=== PATIENT | female | born 1960 | race Caucasian/White ===

== ENCOUNTER 2016-11-26 16:41 | Emergency (ER) | payer MEDICAID, MEDICARE ==
[~2016-11-26] VITALS: Ht 167.6 cm; Wt 52.7 kg
[~2016-11-26 16:41] MED LIST: HALOPERIDOL 5 MG INJ ONE; LORAZEPAM 2 MG INJ ONE
[2016-11-26 16:47] VITALS: Ht 167.6 cm; Wt 52.7 kg
--- NOTE | 2016-11-26 16:58 | ERD ---
ER Documentation Chief Complaint Date/Time DATE: 11/26/16 TIME: 16:55 Chief Complaint aggitation HPI 56-year-old female brought in via EMS for agitation and potential alcohol intoxication. The patient was found in public her breasts. The patient arrives and is verbally aggressive and threatening upon arrival. She continues to expose herself in the emergency department despite verbal redirection. The patient does admit to drinking alcohol tonight. She denies any drug abuse. She denies any suicidal or homicidal ideation. Remainder of HPI is very limited. ROS All systems reviewed and are negative except as per history of present illness. Medications Home Meds Unable to Obtain Active Prescriptions or Reported Meds PMhx/Soc Hx Miscellaneous Medical Probl: Yes (bipolar) FmHx Family History: No diabetes Physical Exam Vitals Vital Signs Date Time Temp Pulse Resp B/P Pulse Ox O2 Delivery O2 Flow Rate FiO2 11/26/16 18:00 97.5 92 18 135/90 97 11/26/16 17:45 97.5 90 18 134/89 97 11/26/16 17:30 97.5 92 18 142/78 97 11/26/16 17:15 97.5 90 18 132/88 97 11/26/16 16:50 97.5 92 18 134/75 97 11/26/16 16:47 98.1 111 16 129/67 99 Physical Exam General: Disheveled, thin female verbally aggressive, exposing self Head: Normocephalic, atraumatic. Eyes: Pupils equally reactive, EOM intact ENT: Moist mucous membranes Neck: Supple, no lymphadenopathy Respiratory: Lungs clear bilaterally, no distress Cardiovascular: RRR, no murmurs, rubs, or gallops Abdominal: Soft, non-tender, non-distended, no peritoneal signs : Deferred MSK: No edema, no unilateral swelling, 5/5 strength Neurologic: Limited exam, smells of alcohol, moving all extremities Skin: No rash Psych: Agitated, limiting exam Result Diagram: 11/26/16 1649 11/26/16 1649 Results 24 hrs Laboratory Tests Test 11/26/16 16:49 White Blood Count 8.210^3/ul Red Blood Count 3.8310^6/ul Hemoglobin 12.2g/dl Hematocrit 35.7% Mean Corpuscular Volume 93.2fl Mean Corpuscular Hemoglobin 31.9pg Mean Corpuscular Hemoglobin Concent 34.2g/dl Red Cell Distribution Width 11.6% Platelet Count 56311^3/UL Mean Platelet Volume 9.1fl Neutrophils % 68.9% Lymphocytes % 20.4% Monocytes % 7.7% Eosinophils % 2.2% Basophils % 0.7% Nucleated Red Blood Cells % 0.0/100WBC Neutrophils # 5.710^3/ul Lymphocytes # 1.710^3/ul Monocytes # 0.610^3/ul Eosinophils # 0.210^3/ul Basophils # 0.110^3/ul Nucleated Red Blood Cells # 0.010^3/ul Sodium Level 132mmol/L Potassium Level 4.0mmol/L Chloride Level 102mmol/L Carbon Dioxide Level 21mmol/L Anion Gap 13 Blood Urea Nitrogen 16mg/dl Creatinine 0.68mg/dl Glucose Level 95mg/dl Calcium Level 9.2mg/dl Total Bilirubin 0.0mg/dl Direct Bilirubin 0.00mg/dl Indirect Bilirubin 0.0mg/dl Aspartate Amino Transf (AST/SGOT) 82IU/L Alanine Aminotransferase (ALT/SGPT) 59IU/L Alkaline Phosphatase 100IU/L Total Protein 7.1g/dl Albumin 3.7g/dl Globulin 3.40g/dl Albumin/Globulin Ratio 1.08 Ethyl Alcohol Level 130.0mg/dl Current Medications Medications (Trade) Dose Ordered Sig/Allison Route PRN Reason Start Time Stop Time Status Last Admin Dose Admin Haloperidol (Haldol) 5 mg ONCE ONCE IM 11/26/16 17:00 11/26/16 17:01 DC 11/26/16 16:50 Lorazepam (Ativan) 1 mg ONCE ONCE IM 11/26/16 17:00 11/26/16 17:01 DC 11/26/16 16:49 Procedures/MDM PROCEDURES: Restrains: Indication: Agitation, threatening of harm to self and others Location: 4 point restraints to bilateral upper and lower extremities The patient was given verbal warnings that if the behavior continued the patient would require physical and/or chemical restraints. Despite verbal warnings the behavior continued and restraints were applied. The patient had a bedside reevaluation within 50 minutes of placement of restraints. Patient remained stable. LAB INTERPRETATION: Alcohol level only mildly elevated MEDICAL DECISION MAKING: The patient's presentation is consistent with acute alcohol intoxication, possible underlying psychiatric illness. The patient is aggressive requiring physical and chemical restraints. I have a much lower clinical concern for clinically significant traumatic brain injury, meningitis, significant electrolyte disturbance The patient's workup will include appropriate laboratory testing and diagnostic imaging, as well as observation for sobriety. The patient's presentation is most consistent with acute alcohol intoxication leading to acute encephalopathy. The patient is protecting their airway. The patient has no signs or symptoms concerning for impending respiratory failure and does not require intubation at this time. The patient will require observation in the emergency room to allow for metabolization. Once the patient is able to ambulate on their own accord, navigate the community the patient can be safely discharged from the emergency room. ER COURSE: The patient was given 5 mg of Haldol, 1 mg of Ativan. Restraints applied. Alcohol level only mildly elevated suggesting possible polysubstance abuse versus underlying psychiatric illness. For this reason a broader psychiatric workup was initiated. The patient still did not require CT imaging of the brain. The patient will be observed, reevaluated for possible acute psychosis. I kept the patient and/or family informed of laboratory and diagnostic imaging results throughout the emergency room course. DISPOSITION PLAN: Pending reevaluation for acute psychosis. If negative anticipate discharge home. Patient endorsed oncoming provider for reevaluation Departure Diagnosis: Primary Impression: Polysubstance abuse Additional Impression: Agitation Condition: Stable SIRENA BLACKWELL MD Nov 26, 2016 16:58
[2016-11-26] MEDS ORDERED: LORAZEPAM 2 MG INJ IM ONE (17:00)
[2016-11-26] MEDS ORDERED: HALOPERIDOL 5 MG INJ IM ONE (17:00)
[2016-11-26 18:42] LABS: ADD SCAN DIFF NO
[2016-11-26 18:43] LABS: BASOPHIL # 0.1 10^3/ul (0.0-0.1); BASOPHILS % 0.7 % (0.0-2.0); EOSINOPHILS # 0.2 10^3/ul (0.0-0.5); EOSINOPHILS % 2.2 % (0.0-7.0); HEMATOCRIT 35.7 % (37.0-47.0); HEMOGLOBIN 12.2 g/dl (12.0-16.0); LYMPHOCYTES # 1.7 10^3/ul (0.8-2.9); LYMPHOCYTES % 20.4 % (15.0-51.0); MEAN CORPUSCULAR HEMOGLOBIN 31.9 pg (29.0-33.0); MEAN CORPUSCULAR HGB CONC 34.2 g/dl (32.0-37.0); MEAN CORPUSCULAR VOLUME 93.2 fl (82.0-101.0); MEAN PLATELET VOLUME 9.1 fl (7.4-10.4); MONOCYTE # 0.6 10^3/ul (0.3-0.9); MONOCYTES % 7.7 % (0.0-11.0); NEUTROPHIL # 5.7 10^3/ul (1.6-7.5); NEUTROPHILS % 68.9 % (39.0-77.0); PLATELET COUNT 413 10^3/UL (140-415); RED BLOOD COUNT 3.83 10^6/ul (4.20-5.40); RED CELL DISTRIBUTION WIDTH 11.6 % (11.5-14.5); WHITE BLOOD COUNT 8.2 10^3/ul (4.8-10.8)
[2016-11-26 18:48] LABS: ALBUMIN 3.7 g/dl (3.3-4.9)
[2016-11-26 18:50] LABS: ALBUMIN/GLOBULIN RATIO 1.08; CREATININE 0.68 mg/dl (0.44-1.00); TOTAL PROTEIN 7.1 g/dl (6.1-8.1)
[2016-11-26 18:51] LABS: CALCIUM 9.2 mg/dl (8.4-10.2)
[2016-11-26 21:14] VITALS: BP 136/92; PULSE 100; RESP 14
== END 2016-11-27 00:53 | disposition home or self-care (01) ==
LOC: E/R 16:41
DX: F10.120 Alcohol abuse with intoxication, uncomplicated (principal)
CPT/HCPCS: 80053; 80306; 85025; 96374; 96375; 99284; J1630; J2060

== ENCOUNTER → 2017-12-22 | Emergency (ER) | END | disposition home or self-care (01) ==

== ENCOUNTER 2018-10-23 11:45 | Emergency (ER) | payer MEDICARE, MEDICAID ==
[~2018-10-23] VITALS: Ht 170.2 cm; Wt 63.6 kg
[2018-10-23 11:48] VITALS: Ht 170.2 cm; Wt 63.6 kg
--- NOTE | 2018-10-23 12:21 | ERD ---
ER Documentation Chief Complaint Chief Complaint etoh, fell from w/c, no LOC HPI The patient is a 58-year-old female, presenting to the ER because she fell off the wheelchair in front of a store, she had a strong smell of alcohol. She denies syncope, near syncope, neck pain, chest pain, dyspnea, abdominal pain, vomiting, dysuria. She smokes and drinks, uses w/c Past medical history: Bipolar ROS All systems reviewed and are negative except as per history of present illness. Medications Home Meds No Active Prescriptions or Reported Meds Allergies Allergies: Coded Allergies: Penicillins (Verified Allergy, Unknown, RASH, 10/23/18) PMhx/Soc History of Surgery: No Anesthesia Reaction: No Hx Neurological Disorder: No Hx Respiratory Disorders: No Hx Cardiac Disorders: No Hx Psychiatric Problems: Yes (BIPOLAR ) Hx Miscellaneous Medical Probl: Yes (ETOH ABUSE ) Hx Alcohol Use: Yes Hx Substance Use: Yes Hx Tobacco Use: Yes Smoking Status: Current every day smoker Physical Exam Vitals Vital Signs Date Temp Pulse Resp B/P (MAP) Pulse Ox O2 O2 Flow FiO2 Time Delivery Rate 10/23/18 92 22 147/86 100 Room Air 14:00 (106) 10/23/18 75 18 123/92 100 Room Air 12:05 (102) 10/23/18 98.0 87 16 121/73 100 11:48 (89) Physical Exam Const: No acute distress. Head: Atraumatic. Eyes: Normal Conjunctiva. ENT: Normal External Ears, Nose and Mouth. Nasal contusion, no nasal hematoma Neck: Full range of motion. No meningismus. Resp: Clear to auscultation bilaterally. Cardio: Regular rate and rhythm. Abd: Soft, non distended, normal bowel sounds, non tender. Skin: No petechiae or rashes. Back: No midline or flank tenderness. Ext: No cyanosis, or edema. Neur: Awake. No focal deficit. Limited exam Psych: Intoxicated Result Diagram: 10/23/18 1221 10/23/18 1221 Results 24 hrs Laboratory Tests Test 10/23/18 12:21 10/23/18 12:50 10/23/18 15:25 White Blood Count 7.7 10^3/ul Red Blood Count 4.58 10^6/ul Hemoglobin 14.1 g/dl Hematocrit 43.8 % Mean Corpuscular Volume 95.6 fl Mean Corpuscular Hemoglobin 30.8 pg Mean Corpuscular 32.2 g/dl Hemoglobin Concent Red Cell Distribution Width 12.6 % Platelet Count 424 10^3/UL Mean Platelet Volume 9.3 fl Immature Granulocytes % 0.500 % Neutrophils % 59.5 % Lymphocytes % 29.8 % Monocytes % 8.2 % Eosinophils % 1.3 % Basophils % 0.7 % Nucleated Red Blood Cells % 0.0 /100WBC Immature Granulocytes # 0.040 10^3/ul Neutrophils # 4.6 10^3/ul Lymphocytes # 2.3 10^3/ul Monocytes # 0.6 10^3/ul Eosinophils # 0.1 10^3/ul Basophils # 0.1 10^3/ul Nucleated Red Blood Cells # 0.0 10^3/ul Sodium Level 147 mmol/L Potassium Level 3.6 mmol/L Chloride Level 109 mmol/L Carbon Dioxide Level 28 mmol/L Anion Gap 10 Blood Urea Nitrogen 14 mg/dl Creatinine 0.45 mg/dl Est Glomerular Filtrat > 60 mL/min Rate mL/min Glucose Level 92 mg/dl Calcium Level 9.4 mg/dl Total Bilirubin 0.0 mg/dl Direct Bilirubin 0.00 mg/dl Indirect Bilirubin 0.0 mg/dl Aspartate Amino 54 IU/L Transf (AST/SGOT) Alanine 40 IU/L Aminotransferase (ALT/SGPT) Alkaline Phosphatase 103 IU/L Total Protein 7.6 g/dl Albumin 4.1 g/dl Globulin 3.50 g/dl Albumin/Globulin Ratio 1.17 Salicylates Level < 1.0 mg/dl Acetaminophen Level < 10.0 ug/ml Ethyl Alcohol Level 272.0 mg/dl Bedside Glucose 91 mg/dL Urine Color COLORLESS Urine Clarity CLEAR Urine pH 7.0 Urine Specific Lawrence 1.005 Urine Ketones NEGATIVE mg/dL Urine Nitrite NEGATIVE mg/dL Urine Bilirubin NEGATIVE mg/dL Urine Urobilinogen NEGATIVE mg/dL Urine Leukocyte Esterase NEGATIVE Monserrat/ul Urine Hemoglobin NEGATIVE mg/dL Urine Glucose NEGATIVE mg/dL Urine Total Protein NEGATIVE mg/dl Urine Opiates Screen Negative Urine Barbiturates Negative Urine Amphetamines Screen Positive Urine Benzodiazepines Screen Negative Urine Cocaine Screen Negative Urine Cannabinoids Positive Current Medications Medications Dose Sig/Allison Start Time Status Last (Trade) Ordered Route PRN Stop Time Admin Dose Reason Admin 650 mg ONCE STAT 10/23/18 DC Acetaminophen PO 18:45 (Tylenol 10/23/18 18:50 Tab) Procedures/MDM [place] [address] Radiology Main Line: [phone] DIAGNOSTIC IMAGING REPORT Patient: JOSE BARRERA : 1960 Age: 58 Sex: F MR #: [id number] DOS: 10/23/18 1241 Ordering MD: STERLING MORALES MD Location: E/R Room/Bed: PROCEDURE: CT brain without contrast CLINICAL INDICATION: Altered level of consciousness TECHNIQUE: CT of the brain without contrast performed on a multidetector CT scanner, with multiplanar reformats. One or more of the following dose reduction techniques were used: Automated exposure control, adjustment in mA and / or kV according to patient size, use of iterative reconstructive technique. CTDIvol = 38 mGy; DLP = 555 mGy-cm. DICOM images are available. COMPARISON: None available FINDINGS: No acute intracranial hemorrhage is identified. No extra-axial fluid collection is seen. There is no mass effect. No midline shift is identified. There is no hydrocephalus. The ventricles and sulci are unremarkable. There are mild areas of hypodensity in the periventricular - deep white matter which are nonspecific but suggestive of chronic small vessel ischemic changes. Chen-white junctions are preserved. Calvarium and skull base are intact. Mastoid air cells and visualized paranasal sinuses are grossly clear. IMPRESSION: 1. No evidence of acute intracranial pathology. 2. Mild chronic small vessel ischemic changes. RPTAT: VV .Galdino Harris MD, Date Time Electronically viewed and signed by .Galdino Harris MD, MD on 10/23/2018 13:39 .O/ CC: STERLING MORALES MD [phone] [place] [address] Radiology Main Line: [phone] DIAGNOSTIC IMAGING REPORT Patient: JOSE BARRERA : 1960 Age: 58 Sex: F MR #: [id number] DOS: 10/23/18 1241 Ordering MD: STERLING MORALES MD Location: E/R Room/Bed: PROCEDURE: CT cervical spine without contrast. CLINICAL INDICATION: Neck pain TECHNIQUE: CT of the cervical spine without contrast was performed on a multidetector CT scanner, with multiplanar reformats. One or more of the following dose reduction techniques were used: Automated exposure control, adjustment in mA and / or kV according to patient size, use of iterative reconstructive technique. CTDIvol = 22 mGy and DLP = 408 mGy-cm. DICOM images are available. COMPARISON: None available. FINDINGS: Patient motion related artifacts mildly limit evaluation. No fracture is i dentified. There is reversal of the lordosis of the upper cervical spine. Grade 2 anterolisthesis of C T1-C3 and mild grade 1 anterolisthesis of C3 on C4 and C6 on C7 are identified.. The cervical vertebral bodies are grossly maintained in height. There are atlantoaxial joint degenerative changes. Anterior osteophytes are seen at C2-3 through C6-7. There is disc space narrowing, moderate at C3-4 and C4-5, mild - moderate at C5-6 with associated endplate degenerative changes. Noted is a small focus of vacuum change in the C3 body. Noted is congenital / developmental narrowing of the cervical spinal canal. Additional findings by levels: C2-3: Uncovering of the posterior disc and with posterior osteophytes, and ligamentum flavum hypertrophy. Moderate to severe central canal stenosis iden tified. Facet arthropathy with mild-moderate bilateral foraminal narrowing. C3-4: Posterior disk/osteophyte and ligamentum flavum hypertrophy with moderate central canal stenosis identified. Uncovertebral osteophytes and facet arthropathy with moderate to severe right, mild-moderate left foraminal narrowing. C4-5: Posterior disk/osteophyte and ligamentum flavum hypertrophy with mild to moderate central canal stenosis identified. Uncovertebral osteophytes and facet arthropathy with mild - moderate right, moderate to severe left foraminal narrowing. C5-6: Posterior disc osteophyte and ligamentum flavum hypertrophy with mild central canal stenosis identified. Uncovertebral osteophytes and facet arthropathy with mild-moderate bilateral foraminal narrowing. C6-7: Facet arthropathy. No acquired central canal stenosis or foraminal narrowing identified. C7-T1: Facet arthropathy. No acquired central canal stenosis or foraminal narrowing identified. IMPRESSION: 1. Mildly limited evaluation due to motion, without cervical spine fracture identified. 2. Cervical spondylosis/degenerative enthesopathy as detailed above with grade 2 anterolisthesis at C2-3 and grade 1 anterolisthesis at C3-4 and C6-7. RPTAT: VV .Galdino Harris MD, MD Date Time Electronically viewed and signed by .Galdino Harris MD, MD on 10/23/2018 14:13 .O/ CC: STERLING MORALES MD [id number] [place] [address] Radiology Main Line: [phone] DIAGNOSTIC IMAGING REPORT Patient: JSOE BARRERA : 1960 Age: 58 Sex: F MR #: [id number] DOS: 10/23/18 1241 Ordering MD: STERLING MORALES MD Location: E/R Room/Bed: PROCEDURE: CT face without contrast CLINICAL INDICATION: Face pain TECHNIQUE: CT of the face without contrast was performed on a multidetector CT scanner, with multiplanar reformats. One or more of the following dose reduction techniques were used: Automated exposure control, adjustment in mA and / or kV according to patient size, use of iterative reconstructive technique. C TDIvol = 29 mGy and DLP = 524 mGy-cm. DICOM images are available. COMPARISON: None available. FINDINGS: No acute fracture is identified. The orbital structures are unremarkable. No soft tissue gas, hematoma or radiopaque foreign body is seen. There is no temporomandibular joint dislocation. There are postoperative changes of the mandible bilaterally with fixation wires at the junction of the bodies and angles. There is foreshortening of the right mandibular condyle. There are right temporal measurement joint degenerative changes. A few dental caries, and periapical lucencies at the anterior right and posterior bilateral mandibular teeth are seen. No destructive osseous change is seen. There is mild right maxillary sinus mucosal thickening. IMPRESSION: 1. No acute facial fracture/injury identified. 2. Mandibular postoperative and chronic changes as described above. 3. Right temporomandibular joint degenerative changes. 4. Paranasal sinus mucosal disease and dental disease as described above. RPTAT: VV .Galdino Harris MD, Date Time Electronically viewed and signed by .Galdino Harris MD, on 10/23/2018 13:45 .O/ CC: STERLING MORALES MD [id number] [place] [address] Radiology Main Line: [phone] DIAGNOSTIC IMAGING REPORT Patient: JOSE BARRERA : 1960 Age: 58 Sex: F MR #: [id number] DOS: 10/23/18 0000 Ordering MD: STERLING MORALES MD Location: E/R Room/Bed: PROCEDURE: XR Chest. CLINICAL INDICATION: Chest pain TECHNIQUE: Single portable view of the chest was obtained COMPARISON: None FINDINGS: The heart is enlarged. The lungs are clear. There is no pleural effusion or pneumothorax. RPTAT: AA IMPRESSION: Mild Cardiomegaly. .Michael Russell MD, MD Date Time Electronically viewed and signed by .Michael Russell MD, MD on 10/23/2018 13:29 .S/ CC: STERLING MORALES MD [phone] MEDICAL MAKING DECISION: The patient is a 58-year-old female, presenting with acute facial contusion, acute alcohol abuse, polysubstance abuse. She is stable for outpatient follow-up The differential diagnoses considered include but are not limited to facial fracture, contusion, substance abuse Departure Diagnosis: Primary Impression: Alcohol abuse Additional Impressions: Facial contusion Polysubstance abuse Condition: Good Comments He is awaiting for social work therapist evaluation I have provided a medical screening exam and evaluation. Referral to outpatient behavioral health for follow up is indicated and referrals were provided.] The patient is clinically stable for discharge. I have communicated after-visit instructions and plan to the patient. Because patient has been identified as without residence, the hospital policy and process for discharge requirements have been initiated by appropriate hospital staff. STERLING MORALES MD Oct 23, 2018 12:21
[2018-10-23] MEDS ORDERED: ACETAMINOPHEN 325 MG TAB PO STA (18:45)
[2018-10-24 01:59] VITALS: BP 170/85; PULSE 85; RESP 16
== END 2018-10-24 06:04 | disposition home or self-care (01) ==
LOC: E/R 11:45
DX: F10.10 Alcohol abuse, uncomplicated (principal); R40.2362 Coma scale, best motor response, obeys commands, at arrival to emergency department; R40.2242 Coma scale, best verbal response, confused conversation, at arrival to emergency department; R40.2132 Coma scale, eyes open, to sound, at arrival to emergency department; S00.83XA Contusion of other part of head, initial encounter; F19.10 Other psychoactive substance abuse, uncomplicated; F17.210 Nicotine dependence, cigarettes, uncomplicated; R07.9 Chest pain, unspecified; W05.0XXA Fall from non-moving wheelchair, initial encounter; Y92.512 Supermarket, store or market as the place of occurrence of the external cause
CPT/HCPCS: 36415; 70450; 70486; 71045; 72125; 80053; 80307; 81003; 82962; 85025